=== PATIENT | male | born 1990 | race Caucasian/White ===

== ENCOUNTER 2019-09-20 16:57 | Emergency (ER) | payer MEDICAID ==
[2019-09-20] MEDS ORDERED: METHYLPREDNISOLONE INJ 125 MG/2 ML SDV IV ONE (17:22)
--- NOTE | 2019-09-20 17:25 | ER Document Report ---
ED Medical Screen (RME) - General Chief Complaint: Back Pain Stated Complaint: BACK PAIN Time Seen by Provider: 09/20/19 17:16 Mode of Arrival: Ambulatory Information source: Patient Notes: HPI; 29-year-old male previous history for a lumbar herniated disc as a teenager. Presents to the emergency room complaining of upper and lower back pain for the past 2 days. 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 Denies any loss control of bowels or bladder, denies any saddle anesthesia, denies any general upper or lower extremity weakness. No red flags. States he arrived here in [place] earlier today after traveling across multiple [facility] over the past 2 weeks. He denies any fever, no shortness of breath, no difficulty breathing. Denies any COVID-19 exposure. Has been taking Advil without relief. Last dose approximately 2 and half hours prior to arrival. PE: Alert and oriented x3. Moderate stress test noted. Tenderness on palpation to the vertebral spines from the mid thoracic region all the way down to S1. There is no obvious deformity noted. I have greeted and performed a rapid initial assessment of this patient. A comprehensive ED assessment and evaluation of the patient, analysis of test results and completion of the medical decision making process will be conducted by additional ED providers. I have specifically instructed the patient or family members with the patient to immediately return to any nursing staff should anything change in the patient's condition or with their chief complaint. TRAVEL OUTSIDE OF THE [place] IN LAST 30 DAYS: No - Related Data Allergies/Adverse Reactions: aspirin Allergy (Verified 09/20/19 17:15) Penicillins Allergy (Verified 09/20/19 17:15) Physical Exam - Vital signs Vitals: Temp Pulse Resp BP Pulse Ox 99.1 F 119 H 18 150/85 H 98 09/20/19 17:00 09/20/19 17:00 09/20/19 17:00 09/20/19 17:00 09/20/19 17:00 Course - Vital Signs Vital signs: Temp Pulse Resp BP Pulse Ox 99.1 F 119 H 18 150/85 H 98 09/20/19 17:00 09/20/19 17:00 09/20/19 17:00 09/20/19 17:00 09/20/19 17:00
--- NOTE | 2019-09-20 18:23 | RADIOLOGY REPORT (SQ) ---
EXAM DESCRIPTION: L SPINE WHOLE IMAGES COMPLETED DATE/TIME: 09/20/2019 6:06 pm REASON FOR STUDY: back pain COMPARISON: None. NUMBER OF VIEWS: Five views including obliques. TECHNIQUE: AP, lateral, oblique, and sacral radiographic images acquired of the lumbar spine. LIMITATIONS: None. FINDINGS: MINERALIZATION: Normal. SEGMENTATION: Normal. No transitional anatomy. ALIGNMENT: Normal. VERTEBRAE: Maintained height. No fracture or worrisome bone lesion. DISCS: Preserved height. No significant osteophytes or end plate irregularity. POSTERIOR ELEMENTS: Pedicles and facets are intact. No pars defect or posterior arch defects. HARDWARE: None in the spine. PARASPINAL SOFT TISSUES: Normal. PELVIS: Intact as visualized. No fractures or worrisome bone lesions. SI joints intact. OTHER: No other significant finding. IMPRESSION: 1. NORMAL 5 VIEW LUMBAR SPINE. TECHNICAL DOCUMENTATION: JOB ID: [id number] 2010 [employer]- All Rights Reserved Reading location - IP/workstation name: [email or web address]
--- NOTE | 2019-09-20 18:25 | RADIOLOGY REPORT (SQ) ---
EXAM DESCRIPTION: T SPINE AP/LAT IMAGES COMPLETED DATE/TIME: 09/20/2019 6:06 pm REASON FOR STUDY: back pain COMPARISON: None. NUMBER OF VIEWS: Two views. TECHNIQUE: AP and lateral radiographic images acquired of the thoracic spine. LIMITATIONS: None. FINDINGS: MINERALIZATION: Normal. ALIGNMENT: Slight dextroconvex scoliosis of the upper-mid thoracic spine. VERTEBRAE: No fracture or bone lesion. Maintained height, normal segmentation. DISCS: No significant loss of height or significant narrowing. No large osteophytes. HARDWARE: None in the spine. MEDIASTINUM AND SOFT TISSUES: Normal heart size and aortic contour. No soft tissue abnormality. VISUALIZED LUNG GREEN: Clear. OTHER: No other significant finding. IMPRESSION: 1. Slight dextroconvex scoliosis. No acute osseous findings. TECHNICAL DOCUMENTATION: JOB ID: [id number] 2010 [employer]- All Rights Reserved Reading location - IP/workstation name: [email or web address]
[2019-09-20] MEDS ORDERED: DIAZEPAM 5 MG TABLET PO ONE (18:52)
[2019-09-20] MEDS ORDERED: HYDROCODONE/ACETAMINOPHEN 5-325 MG TABLET PO ONE (18:52)
--- NOTE | 2019-09-20 19:00 | ER Document Report ---
ED Neck/Back Problem - General Chief Complaint: Neck and Upper Back Pain Stated Complaint: BACK PAIN Time Seen by Provider: 09/20/19 17:16 Mode of Arrival: Ambulatory Notes: CHIEF COMPLAINT: Back pain HPI: 21-year-old male presenting for evaluation of thoracic back pain that began after he threw some chains 2 days ago. 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 Has had problems with his back in the past never this severe. Denies incontinence of urine or bowel. Denies weakness in the lower extremities. States he has been taking ibuprofen for his discomfort. ROS: See HPI - all other systems were reviewed and are otherwise negative Constitutional: no fever Eyes: no drainage, no blurred vision ENT: no runny nose, no sore throat Cardiovascular: no chest pain Resp: no SOB, no cough GI: no vomiting, no diarrhea, no abdominal pain : no dysuria Integumentary: no rash Allergy: no hives Musculoskeletal: no extremity pain or swelling, positive back pain Neurological: no numbness/tingling, no weakness MEDICATIONS: I agree with the patient medications as charted by the RN. ALLERGIES: I agree with the allergies as charted by the RN. PAST MEDICAL HISTORY/PAST SURGICAL HISTORY: Reviewed and agree as charted by RN. SOCIAL HISTORY: Reviewed and agree as charted by RN. FAMILY HISTORY: No significant familial comorbid conditions directly related to patient complaint EXAM: Reviewed vital signs as charted by RN. CONSTITUTIONAL: Alert and oriented and responds appropriately to questions. Well-appearing; well-nourished, mild distress secondary to pain HEAD: Normocephalic; atraumatic EYES: PERRL; Conjunctivae clear, sclerae non-icteric ENT: normal nose; no rhinorrhea; moist mucous membranes; pharynx without lesions noted NECK: Supple without meningismus; non-tender; no cervical lymphadenopathy, no masses CARD: RRR; no murmurs, no clicks, no rubs, no gallops; symmetric distal pulses RESP: Normal chest excursion without splinting or tachypnea; breath sounds clear and equal bilaterally; no wheezes, no rhonchi, no rales, pulse oximetry 97% on room air not hypoxic ABD/GI: Normal bowel sounds; non-distended; soft, non-tender, no rebound, no guarding; no palpable organomegaly or masses. BACK: The back appears normal and is mildly tender to palpation in the lower thoracic upper lumbar musculature and paraspinous musculature bilaterally EXT: Normal ROM in all joints; non-tender to palpation; no cyanosis, no effusions, no edema SKIN: Normal color for age and race; warm; dry; good turgor; no acute lesions noted NEURO: Moves all extremities equally; Motor and sensory function intact. Strength equal 5/5 bilateral lower extremities. Sensation intact and equal bilateral lower extremities. Straight leg raise is negative. No saddle anesthesia on exam. DTRs 2+ intact and equal bilateral lower extremities. PSYCH: The patient's mood and manner are appropriate. Grooming and personal hygiene are appropriate. MDM: 29-year-old male presenting for back pain that appears muscular in nature. Neurologically intact low suspicion for cauda equina. X-ray imaging ordered of the triage process negative for fracture. 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 IN LAST 30 DAYS: No - Related Data Allergies/Adverse Reactions: aspirin Allergy (Verified 09/20/19 17:15) Penicillins Allergy (Verified 09/20/19 17:15) Past Medical History - General Information source: Patient - Social History Smoking Status: Former Smoker Chew tobacco use (# tins/day): Yes Frequency of alcohol use: None Drug Abuse: None Family History: Reviewed & Not Pertinent Patient has homicidal ideation: No Physical Exam - Vital signs Vitals: Temp Pulse Resp BP Pulse Ox 99.1 F 119 H 18 150/85 H 98 09/20/19 17:00 09/20/19 17:00 09/20/19 17:00 09/20/19 17:00 09/20/19 17:00 Course - Vital Signs Vital signs: Temp Pulse Resp BP Pulse Ox 98.4 F 102 H 20 153/83 H 99 09/20/19 19:14 09/20/19 19:14 09/20/19 19:14 09/20/19 19:14 09/20/19 19:14 Discharge - Discharge Clinical Impression: Back strain Qualifiers: Encounter type: initial encounter Qualified Code(s): S39.012A - Strain of muscle, fascia and tendon of lower back, initial encounter Condition: Stable Disposition: HOME, SELF-CARE Additional Instructions: 1. Warm heat to the lower back twice daily 2. no heavy lifting for 2-3 days 3. medications as prescribed, no driving on narcotics or muscle relaxers 4. follow up with orthopedics for further evaluation and treatment as needed for any continuing pain or problems, call for appt. 5. return to the ER for any onset of incontinence of urine, fever > 101 or worsening condition Prescriptions: Diazepam [Valium 5 mg Tablet] 5 mg PO QIDP PRN #15 tablet PRN Reason: Diclofenac Sodium [Voltaren 50 Mg Tablet.] 50 mg PO BID #20 tablet. Referrals: LIZZ DON MD [ACTIVE STAFF] - Follow up as needed
[2019-09-20 19:15] VITALS: BP 153/83
== END 2019-09-20 19:59 | disposition home or self-care (01) ==
LOC: ER 16:57
DX: S39.012A Strain of muscle, fascia and tendon of lower back, initial encounter (principal); M54.9 Dorsalgia, unspecified; X50.9XXA Other and unspecified overexertion or strenuous movements or postures, initial encounter; Z87.891 Personal history of nicotine dependence; Z88.8 Allergy status to other drugs, medicaments and biological substances; Z88.0 Allergy status to penicillin
CPT/HCPCS: 72070; 72110; 99283